=== PATIENT | male | born 1950 | race Caucasian/White ===

== ENCOUNTER 2018-03-19 06:48 | Emergency (ER) | payer MEDICARE, OTHER ==
[~2018-03-19] VITALS: Ht 188 cm; Wt 95.3 kg
[2018-03-19 07:20] VITALS: BP 124/71
== END 2018-03-19 09:02 | disposition home or self-care (01) ==
LOC: ER 06:48
DX: J01.00 Acute maxillary sinusitis, unspecified (principal); J20.9 Acute bronchitis, unspecified; E11.9 Type 2 diabetes mellitus without complications
CPT/HCPCS: 71046